=== PATIENT | male | born 1960 | race Caucasian/White ===

== ENCOUNTER 2021-05-30 12:24 | Outpatient (RCR) | payer OTHER, SELFPAY | END 2021-07-15 15:37 | disposition home or self-care (01) | LOC: HO.WCC 12:24 | PROVIDERS: PCP Nurse Practitioner Adult Health; Visit Provider Physician Assistant | DX: T87.51 Necrosis of amputation stump, right upper extremity (principal); I73.1 Thromboangiitis obliterans [Buerger's disease]; F17.210 Nicotine dependence, cigarettes, uncomplicated; F12.90 Cannabis use, unspecified, uncomplicated; Z89.211 Acquired absence of right upper limb below elbow; Z89.212 Acquired absence of left upper limb below elbow; G56.93 Unspecified mononeuropathy of bilateral upper limbs | CPT/HCPCS: 11042; 99213; 99214 ==